=== PATIENT | female | born 1940 | race Caucasian/White ===

== ENCOUNTER → 2018-10-27 | Outpatient (CLI) | payer OTHER | END | disposition home or self-care (01) | LOC: NUCLEAR 07:00 | DX: R10.11 Right upper quadrant pain (principal); K82.9 Disease of gallbladder, unspecified | CPT/HCPCS: 78227; A9537 ==

== ENCOUNTER 2018-11-17 07:47 | Outpatient (CLI) | payer OTHER | END 2018-11-17 07:51 | disposition home or self-care (01) | LOC: RX STUDY 07:47 | DX: R13.10 Dysphagia, unspecified (principal) ==

== ENCOUNTER → 2020-10-20 | Outpatient (CLI) | payer OTHER | END | disposition home or self-care (01) | LOC: PPH VACUNA | PROVIDERS: ATTEND Emergency Medicine Pediatric Emergency Medicine | DX: Z23 Encounter for immunization (principal) ==

== ENCOUNTER 2020-11-10 13:32 | Outpatient (CLI) | payer OTHER | END 2020-11-10 13:33 | disposition home or self-care (01) | LOC: PPH VACUNA 13:32 | PROVIDERS: ATTEND Emergency Medicine Pediatric Emergency Medicine | DX: Z23 Encounter for immunization (principal) ==